=== PATIENT | male | born 1970 | race Caucasian/White ===

== ENCOUNTER → 2017-11-04 | Outpatient (CLI) | payer OTHER, MEDICAID | LOC: FIMAGING 09:49 | PROVIDERS: ATTEND Family Medicine | DX: I72.0 Aneurysm of carotid artery (principal) ==

== ENCOUNTER 2018-02-14 11:54 | Emergency (ER) | payer OTHER, MEDICAID ==
[2018-02-14 12:14] VITALS: BP 159/75
--- NOTE | 2018-02-14 12:45 | EDPHY ---
H & P Time Seen by Provider: 02/14/18 12:06 HPI/ROS: CHIEF COMPLAINT: [ ] History by patient and caregiver HISTORY OF PRESENT ILLNESS: 39-year-old man with a history of developmental disability lives in a senior living is brought in by his caregiver because of 2-3 days of red left eye. Caregiver has noticed some clear and sometimes white discharge from the eye. The patient states the eyelids are stuck together when he wakes up in the morning. He complains of some foreign body sensation as well as itching and some pain. He did he denies any difficulty with his vision. There is no pain with extraocular movements. There is no fever. There has been no trauma to the eye. Caregiver also noticed some swelling of the upper and lower lids since this happened. Patient has been rubbing his eyes since the onset of redness and itching. REVIEW OF SYSTEMS: As in HPI, and all other systems reviewed and are negative Smoking Status: Never smoked Physical Exam: General: Alert, well-appearing Head: Normocephalic, atraumatic EOMI Pupils: Equal round reactive to light Lids: Derek it, no foreign body seen, positive stye at the medial aspect of right upper lid Conjunctiva: Erythematous, no papules, sclera clear Slit-lamp exam: Fluorescein negative, cornea clear Constitutional: Initial Vital Signs Temperature (C) 36.8 C 02/14/18 12:11 Heart Rate 83 02/14/18 12:11 Respiratory Rate 18 02/14/18 12:11 Blood Pressure 159/75 H 02/14/18 12:11 O2 Sat (%) 95 02/14/18 12:11 O2 Delivery Mode Room Air Allergies/Adverse Reactions: No Known Allergies Allergy (Unverified 02/14/18 12:31) Home Medications: Medication Instructions Recorded Cephalexin [Keflex (*)] 500 mg PO QID #40 tab 08/24/13 Vitamins 08/24/13 Carvedilol 02/14/18 Erythromycin 0.5% 1 [place] LEFTEYE Q2H #1 opht.oint 02/14/18 Levothyroxine 02/14/18 MDM/Departure - [facility] ED Course/Re-evaluation: 39-year-old man presents with conjunctivitis as well as stye in his right upper lid with surrounding lid swelling. Will treat with top of antibiotics the conjunctivitis and warm compresses for the stye. Fluorescein exam was negative.. - Depart Disposition: Home, Routine, Self-Care Clinical Impression: Hordeolum externum left upper eyelid Acute conjunctivitis of left eye Qualifiers: Acute conjunctivitis type: unspecified Qualified Code(s): H10.32 - Unspecified acute conjunctivitis, left eye Condition: Good Instructions: Stye (ED), Conjunctivitis (ED) Additional Instructions: You were seen by Dr. Bebe Viveros today. Please use topical antibiotics as prescribed. Use warm compresses on the eye 3- 4 times daily. Follow up with primary care physician as needed. Return for any worsening or new concerns. Prescriptions: Erythromycin 0.5% 1 [place] LEFTEYE Q2H #1 opht.oint Referrals: Dante Roberts MD [Primary Care Provider] - As per Instructions
== END 2018-02-14 13:09 | disposition home or self-care (01) ==
LOC: CED 11:54
DX: H10.32 Unspecified acute conjunctivitis, left eye (principal); H00.011 Hordeolum externum right upper eyelid